=== PATIENT | female | born 1960 | race Asian ===

== ENCOUNTER 2024-06-16 03:55 | Day surgery (SDC) | payer OTHER ==
[2024-06-13 10:51] VITALS: BMI 32.8
[2024-06-16 07:25] VITALS: RESP 16
[2024-06-16] MEDS ORDERED: IBUPROFEN 400 MG TABLET (FP) PO PRN (08:10)
[2024-06-16] MEDS ORDERED: ACETAMINOPHEN 325 MG TABLET (FP) PO PRN (08:10)
[2024-06-16] MEDS ORDERED: oxyCODONE HCL 5 MG TABLET PO PRN ×2 (08:10→09:53)
[2024-06-16] MEDS ORDERED: ONDANSETRON 4 MG/2 ML VIAL IVPUSH PRN (09:53)
[2024-06-16] MEDS ORDERED: LACTATED RINGERS SOLUTION 1,000 ML IV SCH (10:00)
[2024-06-16 16:24] VITALS: BP 132/74; PULSE 69; TEMP 97.3
== END 2024-06-16 14:15 | disposition home or self-care (01) ==
LOC: JASU-SURG 03:55
PROVIDERS: ATTEND Obstetrics & Gynecology
PROC: 0UB98ZZ Excision of Uterus, Via Natural or Artificial Opening Endoscopic (ICD-10-PCS; principal; 2024-06-16 09:00)
DX: D25.9 Leiomyoma of uterus, unspecified (principal); N84.0 Polyp of corpus uteri; N85.6 Intrauterine synechiae
CPT/HCPCS: 88305-TC; 94760